=== PATIENT | female | born 1995 ===

== ENCOUNTER 2016-08-27 13:56 | Emergency (ER) | payer OTHER ==
--- NOTE | 2016-08-27 15:41 | ED ---
GI/ HPI - History of Current Complaint Chief Complaint: [facility] Time Seen by Provider: 08/27/16 15:38 Stated Complaint: CRAMPING Hx Obtained From: Patient Onset/Duration: Started Days Ago - started feeling vaginal d/c and lower abd cramping over past few days. has had multiple sex partners and one for sure that was not using condoms. she has had chlamydia in past and states it feels like that. also started new control pill 3 weeks ago after last period Timing: Constant Severity: Mild Current Severity: Mild Location of Pain: Suprapubic Pain Characteristics: Aching Associated Signs and Symptoms: Positive: Discharge, Dysuria, Abdominal Pain, New Sexual Partner. Negative: Back Pain, Nausea, Vomiting, Fever, Hematuria Aggravating Factor(s): Voiding Alleviating Factor(s): Nothing - Allergy/Home Medications Allergies/Adverse Reactions: Allergies Allergy/AdvReac Type Severity Reaction Status Date / Time No Known Allergies Allergy Verified 08/19/15 17:44 Home Medications: Home Medications New Control 1 tab PO DAILY 08/27/16 [History] Omeprazole CAP* [Prilosec CAP* 20 MG] 1 tab PO DAILY 08/27/16 [History Confirmed 08/27/16] PMH/Surg Hx/FS Hx/Imm Hx Previously Healthy: Yes Endocrine/Hematology History: Denies: Hx Diabetes, Hx Thyroid Disease Cardiovascular History: Denies: Hx Hypertension Respiratory History: Denies: Hx Asthma, Hx Chronic Obstructive Pulmonary Disease (COPD) GI History: Reports: Hx Gastroesophageal Reflux Disease Denies: Hx Ulcer History: Reports: Other Problems/Disorders - Chlamydia Psychiatric History: Reports: Hx Anxiety - Surgical History Surgery Procedure, Year, and Place: 2013 CHOLECYSTECTOMY Hx Anesthesia Reactions: No Infectious Disease History: No Infectious Disease History: Denies: Hx Clostridium Difficile, Hx Hepatitis, Hx Human Immunodeficiency Virus (HIV), Hx of Known/Suspected MRSA, Hx Shingles, Hx Tuberculosis, Hx Known/ Suspected VRE, Hx Known/Suspected VRSA, History Other Infectious Disease, Traveled Outside the [place] in Last 30 Days - Family History Known Family History: Positive: None - Social History Occupation: Student Lives: With Family Alcohol Use: Occasionally Substance Use Type: Reports: None Smoking Status (MU): Never Smoked Tobacco Review of Systems Constitutional: Negative Cardiovascular: Negative Respiratory: Negative Gastrointestinal: Negative Positive: burning, discharge Skin: Negative Neurological: Negative Psychological: Normal All Other Systems Reviewed And Are Negative: Yes Physical Exam Triage Information Reviewed: Yes Vital Signs On Initial Exam: Initial Vitals Temp Pulse Resp BP Pulse Ox 99.0 F 77 16 132/88 100 08/27/16 15:25 08/27/16 15:25 08/27/16 15:25 08/27/16 15:25 08/27/16 15:25 Vital Signs Reviewed: Yes Appearance: Positive: Well-Appearing, No Pain Distress, Well-Nourished Skin: Positive: Warm, Skin Color Reflects Adequate Perfusion, Dry Respiratory/Lung Sounds: Positive: Clear to Auscultation Cardiovascular: Positive: Normal, RRR, Pulses are Symmetrical in both Upper and Lower Extremities Abdomen Description: Positive: No Organomegaly, Soft Bowel Sounds: Positive: Present Pelvic Exam: Positive: external exam normal, bimanual exam normal, no cerv. motion tender, discharge - clear with streaks of bright red blood near cervix, other - foul odor on speculum exam. Negative: lesions, tender adnexa, tender uterus Musculoskeletal: Positive: Normal, Strength/ROM Intact Neurological: Positive: Normal, Sensory/Motor Intact, Alert, Oriented to Person Place, Time Psychiatric: Positive: Normal Diagnostics - Vital Signs Vital Signs Temp Pulse Resp BP Pulse Ox 08/27/16 15:25 99.0 F 77 16 132/88 100 - Laboratory Lab Statement: Any lab studies that have been ordered have been reviewed, and results considered in the medical decision making process. [facility] Course/Dx - Course Course Of Treatment: pt refuses HIV, Hep C, HSV or syphilis testing - Diagnoses Differential Diagnoses - Female: , Pelvic Inflammatory Disease, STD, Urinary Tract Infection Provider Diagnoses: Vaginitis, Dysuria Discharge - Discharge Plan Condition: Stable Disposition: HOME Patient Education Materials: Vaginitis (ED), Condom Use (ED), Safe Sex (ED) Additional Instructions: Follow-up with lab results next week Use condoms for every sexual encounter Return if symptoms worsen or follow-up with [address]
[2016-08-27] MEDS ORDERED: Azithromycin TAB* 250 MG PO ONE (16:44)
[2016-08-27] MEDS ORDERED: cefTRIAXone VIAL(*) 250 MG VIAL IM ONE (16:44)
[2016-08-27] MEDS ORDERED: Lidocaine 1% MPF* 2 ML VIAL ONE (16:52)
== END 2016-08-27 17:07 | disposition home or self-care (01) ==
LOC: UCEAST 13:56
DX: N76.0 Acute vaginitis (principal); R30.0 Dysuria
CPT/HCPCS: 81002; 81025; 87086; 87480; 87491; 87510; 87591; 87661; 96372; 99212; A9270-GY; G0463; J0696